=== PATIENT | female | born 1950 ===

== ENCOUNTER 2018-10-10 18:48 | Emergency (ER) | payer OTHER, BC ==
[2018-10-10 18:57] VITALS: RESP 18; BMI 29.9
[2018-10-10 20:43] VITALS: BP 192/98; PULSE 70; O2SAT 98
[2018-10-10 20:46] VITALS: TEMP 98.1
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
--- NOTE | 2018-10-11 10:15 | RAD ---
PROCEDURE: Left Hand Radiographs. HISTORY: s/p fall r/o fx COMPARISON: None. FINDINGS: BONES: No acute fracture or destructive bony lesion identified. JOINTS: Degenerative joint space narrowing seen throughout the interphalangeal joints diffusely as well as the carpal/metacarpal joints manifest by joint space narrowing and articular cortical sclerosis. SOFT TISSUES: Soft tissues exhibit heterogeneous density fluid diffusely throughout the hand but sparing the distal segments of the digits. Clinically correlate further. No definitive emphysematous soft tissue changes are identified. Heterotopic calcification appears rounded within the medial proximal index finger soft tissues. Retained radiodense foreign body is less likely but clinical correlation is recommended. OTHER FINDINGS: None. IMPRESSION: No acute fracture or dislocation is appreciated throughout the left hand. Soft tissue changes appear somewhat heterogeneous throughout the palm and proximal digits diffusely and is of uncertain origin. This may be posttraumatic or artifactual. Clinically correlate further. Heterotopic calcification at medial proximal left index finger soft tissues without retained radiodense foreign body not favored.
== END 2018-10-10 20:46 | disposition home or self-care (01) ==
LOC: ED 18:48 → MERGE 18:48 → ED 20:46
DX: S60.222A Contusion of left hand, initial encounter (principal); V03.90XA Pedestrian on foot injured in collision with car, pick-up truck or van, unspecified whether traffic or nontraffic accident, initial encounter; Y92.410 Unspecified street and highway as the place of occurrence of the external cause; I10 Essential (primary) hypertension